=== PATIENT | male | born 1975 | race Caucasian/White ===

== ENCOUNTER 2017-03-01 15:23 | Emergency (ER) | payer BC ==
[2017-03-01] MEDS ORDERED: Sodium Chloride 0.9% 1,000 ML IV ONE (15:35)
--- NOTE | 2017-03-01 16:01 | EDM.PDOC ---
ED HPI GENERAL MEDICAL PROBLEM - General Chief Complaint: Gastrointestinal Problem Stated Complaint: HEADACHES,DIZZY AND COUGHING Time Seen by Provider: 03/01/17 15:30 Source of Information: Reports: Patient History Limitations: Reports: No Limitations - History of Present Illness INITIAL COMMENTS - FREE TEXT/NARRATIVE: History of present illness: [41-year-old male comes in complaining of nausea vomiting diarrhea. 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 Past medical history: As per history of present illness and as reviewed below otherwise noncontributory. Surgical history: As per history of present illness and as reviewed below otherwise noncontributory. Social history: No reported history of drug or alcohol abuse. Family history: As per history of present illness and as reviewed below otherwise noncontributory. Physical exam: HEENT: Atraumatic, normocephalic, pupils reactive, negative for conjunctival pallor or scleral icterus, mucous membranes moist, throat clear, neck supple, nontender, trachea midline. Lungs: Clear to auscultation, breath sounds equal bilaterally, chest nontender. Heart: S1S2, regular, negative for clicks, rubs, or JVD. Abdomen: Soft, nondistended, nontender. Negative for masses or hepatosplenomegaly. Negative for costovertebral tenderness. Pelvis: Stable nontender. Genitourinary: Deferred. Rectal: Deferred. Extremities: Atraumatic, negative for cords or calf pain. Neurovascular unremarkable. Neuro: Awake, alert, oriented. Cranial nerves II through XII unremarkable. Cerebellum unremarkable. Motor and sensory unremarkable throughout. Exam nonfocal. Diagnostics: [CBC, CMP, influenza AB] Therapeutics: [IV fluid] Impression: [] Plan: [] Definitive disposition and diagnosis as appropriate pending reevaluation and review of above. Generalized Pain Score (Numeric/FACES): 5 - Related Data Allergies Allergy/AdvReac Type Severity Reaction Status Date / Time No Known Allergies Allergy Verified 03/01/17 15:29 Home Meds: Home Meds Omeprazole 20 mg PO DAILY 03/01/17 [History] Past Medical History Gastrointestinal History: Reports: GERD - Past Surgical History GI Surgical History: Reports: Appendectomy, Bariatric Procedure, Cholecystectomy , Hernia Repair/Other, Other (See Below) Other GI Surgeries/Procedures: Danay and Y procedure Musculoskeletal Surgical History: Reports: Other (See Below) Other Musculoskeletal Surgeries/Procedures:: 2 back surgeries Social & Family History - Family History Family Medical History: Noncontributory - Tobacco Use Smoking Status *Q: Current Every Day Smoker Years of Tobacco use: 15 Packs/Tins Daily: 0.5 Second Hand Smoke Exposure: Yes - Caffeine Use Caffeine Use: Reports: Coffee, Soda Caffeine Use Comment: 2 cups avg per day - Recreational Drug Use Recreational Drug Use: No ED ROS GENERAL - Review of Systems Review Of Systems: See Below (See history of present illness) ED EXAM, GENERAL - Physical Exam Exam: See Below (See history of present illness) Course - Vital Signs Last Recorded V/S: Last Vital Signs Temp 37.4 C 03/01/17 17:46 Pulse 63 03/01/17 17:46 Resp 16 03/01/17 17:46 BP 146/104 H 03/01/17 17:46 Pulse Ox 98 03/01/17 17:46 - Orders/Labs/Meds Labs: Laboratory Tests 03/01/17 03/01/17 Range/Units 15:48 15:48 WBC 3.57 L (4.0-11.0) K/uL RBC 4.40 L (4.50-5.90) M/uL Hgb 10.4 L (13.0-17.0) g/dL Hct 34.9 L (38.0-50.0) % MCV 79.3 L (80.0-98.0) fL MCH 23.6 L (27.0-32.0) pg MCHC 29.8 L (31.0-37.0) g/dL RDW Std Deviation 42.6 (28.0-62.0) fl RDW Coeff of Freddy 15 (11.0-15.0) % Plt Count 156 (150-400) K/uL MPV 9.10 (7.40-12.00) fL Neut % (Auto) 60.2 (48.0-80.0) % Lymph % (Auto) 23.8 (16.0-40.0) % [place] % (Auto) 9.8 (0.0-15.0) % Eos % (Auto) 5.6 (0.0-7.0) % Baso % (Auto) 0.6 (0.0-1.5) % Neut # (Auto) 2.2 (1.4-5.7) K/uL Lymph # (Auto) 0.9 (0.6-2.4) K/uL [place] # (Auto) 0.4 (0.0-0.8) K/uL Eos # (Auto) 0.2 (0.0-0.7) K/uL Baso # (Auto) 0.0 (0.0-0.1) K/uL Nucleated RBC % 0.0 /100WBC Nucleated RBCs # 0 K/uL Sodium 138 (136-146) mmol/L Potassium 3.7 (3.5-5.1) mmol/L Chloride 104 (98-110) mmol/L Carbon Dioxide 26 (21-31) mmol/L BUN 18 (6.0-23.0) mg/dL Creatinine 0.8 (0.6-1.5) mg/dL Est Cr Clr Drug Dosing 157.79 mL/min Estimated GFR (MDRD) > 60.0 ml/min Glucose 112 H (60-110) mg/dL Calcium 8.6 L (8.8-10.8) mg/dL Total Bilirubin 0.9 (0.1-1.5) mg/dL AST 32 (5-40) IU/L ALT 19 (8-54) IU/L Alkaline Phosphatase 56 (40-150) Total Protein 6.7 (6.0-8.0) g/dL Albumin 3.8 (3.5-5.0) g/dL Globulin 2.9 (2.0-3.5) g/dL Albumin/Globulin Ratio 1.3 (1.3-2.8) Meds: Medications Discontinued Medications Generic Name Dose Route Start Last Admin Trade Name Freq PRN Reason Stop Dose Admin Acetaminophen 1,000 mg 03/01/17 17:02 03/01/17 17:10 Tylenol Extra Strength PO 03/01/17 17:03 1,000 mg ONETIME ONE Administration Sodium Chloride 1,000 mls @ 999 mls/hr 03/01/17 15:35 03/01/17 15:49 Normal Saline IV 03/01/17 16:35 999 mls/hr STAT ONE Administration Departure - Departure Time of Disposition: 17:49 Disposition: Home, Self-Care 01 Condition: Good Clinical Impression: Viral syndrome - Discharge Information Instructions: Dehydration, Adult, [id number], Viral Gastroenteritis, Adult, [id number]-[id number], Diarrhea, Adult, [id number], Nausea and Vomiting, Adult, Easy-to -Read Referrals: PCP,None [Primary Care Provider] - Forms: ED Department Discharge Additional Instructions: The following information is given to patients seen in the emergency department who are being discharged to home. This information is to outline your options for follow-up care. We provide all patients seen in our emergency department with a follow-up referral. The need for follow-up, as well as the timing and circumstances, are variable depending upon the specifics of your emergency department visit. If you don't have a primary care physician on staff, we will provide you with a referral. We always advise you to contact your personal physician following an emergency department visit to inform them of the circumstance of the visit and for follow-up with them and/or the need for any referrals to a consulting specialist. The emergency department will also refer you to a specialist when appropriate. This referral assures that you have the opportunity for follow-up care with a specialist. All of these measure are taken in an effort to provide you with optimal care, which includes your follow-up. Under all circumstances we always encourage you to contact your private physician who remains a resource for coordinating your care. When calling for follow-up care, please make the office aware that this follow-up is from your recent emergency room visit. If for any reason you are refused follow-up, please contact the [facility] Emergency Department at and asked to speak to the emergency department charge nurse. Your symptoms that you have described are consistent with a viral syndrome in light of a negative flu results on your swab Please take a clear liquid diet for the next 24 hours advancing to the BRAT diet which is bananas rice applesauce toast as discussed You're being provided Zofran for nausea as needed Follow-up with primary care in 2-3 days Return to ED as needed as discussed
[2017-03-01 16:15] LABS: CHLORIDE,CL 104 mmol/L (98-110); SODIUM,NA 138 mmol/L (136-146)
[2017-03-01] MEDS ORDERED: Acetaminophen 500 MG Tab PO ONE (17:02)
== END 2017-03-01 18:04 | disposition home or self-care (01) ==
LOC: MW.ED 15:23
DX: B34.9 Viral infection, unspecified (principal); K21.9 Gastro-esophageal reflux disease without esophagitis; F17.210 Nicotine dependence, cigarettes, uncomplicated; Z79.899 Other long term (current) drug therapy
CPT/HCPCS: 36415; 80053; 85025; 87804; 96360; 99284; A9270; J7040; 99283

== ENCOUNTER 2017-03-26 10:39 | Emergency (ER) | payer BC ==
[2017-03-26] MEDS ORDERED: Ketorolac 60 MG/2 ML SDV IM ONE (10:46)
--- NOTE | 2017-03-26 10:55 | EDM.PDOC ---
ED HPI GENERAL MEDICAL PROBLEM - General Chief Complaint: Back Pain or Injury Stated Complaint: LOWER BACK PAIN Time Seen by Provider: 03/26/17 10:44 Source of Information: Reports: Patient History Limitations: Reports: No Limitations - History of Present Illness INITIAL COMMENTS - FREE TEXT/NARRATIVE: HISTORY AND PHYSICAL: History of present illness: Patient is a 41-year-old male who presents to the emergency room today with complaints of low back pain. Yesterday he was carrying a TV up a flight of stairs when he placed the TV on the landing he states he lost his balance and fell approximately 6 steps landing on his back. He denies directly hitting his head or any loss of consciousness. Post fall he states he went to his apartment and did have some a "shot a whiskey" to alleviate the pain. He attempted to go to work today and pain was worse. States he has discomfort when bending or twisting at the waist. He denies any urinary or bowel incontinence. Denies any numbness or tingling to his upper or lower extremities. Able to ambulate without difficulty. Is not on any [id number] medications or anticoagulants. She denies any headache, change in vision, neck pain, chest pain, shortness of breath. Review of systems: As per history of present illness and below otherwise all systems reviewed and negative. Past medical history: As per history of present illness and as reviewed below otherwise noncontributory. Surgical history: As per history of present illness and as reviewed below otherwise noncontributory. Social history: No reported history of drug or alcohol abuse. Family history: As per history of present illness and as reviewed below otherwise noncontributory. Physical exam: Gen.: Well-developed and well-nourished 41-year-old male. Alert and oriented. Answers questions appropriately. Nontoxic appearing and in no acute distress. HEENT: Atraumatic, normocephalic, pupils equal and reactive bilaterally, negative for conjunctival pallor or scleral icterus, mucous membranes moist, throat clear, neck supple, nontender, trachea midline. No meningeal sign. No drooling or trismus. Lungs: Clear to auscultation, breath sounds equal bilaterally, chest nontender. Heart: S1S2, regular rate and rhythm Abdomen: Soft, nondistended, nontender. Negative for masses or hepatosplenomegaly. Negative for costovertebral tenderness. Pelvis: Stable nontender. Genitourinary: Deferred. Rectal: Deferred. C-Spine/Back: No pinpoint vertebral tenderness upon palpation. No cervical, thoracic, lumbar or sacral deformity, crepitus or step-offs. Patient is able to ambulate on his toes and on his heels without difficulty. Does have some discomfort when bending at the waist forward and twisting from side to side. Full range of motion without difficulty but does cause some discomfort. Strong pedal pulses bilaterally. Strong radial pulses bilaterally. Denies any numbness or tingling to the distal extremities. Is intact, warm, dry. Extremities: Denies any extremity pain or tenderness with palpation, has full range of motion, negative for cords or calf pain. Has some muscular discomfort/ tenderness with palpation to the lumbar area, adjacent to the spine bilaterally. This does not radiate down either glute or down the leg. Neurovascular unremarkable. Neuro: Awake, alert, oriented. Cranial nerves II through XII unremarkable. Cerebellum unremarkable. Motor and sensory unremarkable throughout. Exam nonfocal. Lumbar x-ray shows mild degenerative changes but otherwise benign. Acute findings. Patient's pain appears to be muscular, will prescribe Flexeril, #21 tablets, no refill. Diclofenac has also been prescribed. Education and post medications have been given to the patient. Not improved we discussed the next steps of possibly needing physical therapy or further imaging, which would be done through his primary care. He states he'll follow-up if he does not improve in the next couple days. He voices understanding and is agreeable to plan of care. He denies any further questions at this time. Diagnostics: Lumbar x-ray Therapeutics: Toradol Impression: Low back pain Plan: 1. Diclofenac and Flexeril have been prescribed for you. Diclofenac as an anti- inflammatory so please do not take with any additional NSAIDs, such as ibuprofen or Aleve, as this may cause stomach upset. Take this medication with food. External may cause some drowsiness do not take it while driving or needing to be functioning at work. If needed he may take Tylenol for breakthrough pain. Gentle heat and stretching. 2. Please follow-up with your primary care provider in the next couple days for reevaluation. Return to the ED as needed and as discussed. Definitive disposition and diagnosis as appropriate pending reevaluation and review of above. Onset Date: 03/25/17 Onset Time: 17:00 Duration: Day(s): Location: Reports: Back Improves with: Reports: Rest Worsens with: Reports: Movement Associated Symptoms: Reports: No Other Symptoms Middle Back Pain Score (Numeric/FACES): 6 - Related Data Allergies Allergy/AdvReac Type Severity Reaction Status Date / Time No Known Allergies Allergy Verified 03/01/17 15:29 Home Meds: Home Meds Omeprazole 20 mg PO DAILY 03/01/17 [History] Ondansetron [Zofran] 4 mg PO Q4H #30 tab 03/01/17 [Rx] Past Medical History Gastrointestinal History: Reports: GERD - Past Surgical History GI Surgical History: Reports: Appendectomy, Bariatric Procedure, Cholecystectomy , Hernia Repair/Other, Other (See Below) Other GI Surgeries/Procedures: Danay and Y procedure Musculoskeletal Surgical History: Reports: Other (See Below) Other Musculoskeletal Surgeries/Procedures:: 2 back surgeries Social & Family History - Family History Family Medical History: Noncontributory - Tobacco Use Smoking Status *Q: Current Every Day Smoker Years of Tobacco use: 15 Packs/Tins Daily: 0.5 Second Hand Smoke Exposure: Yes - Caffeine Use Caffeine Use: Reports: Coffee, Soda Caffeine Use Comment: 2 cups avg per day - Recreational Drug Use Recreational Drug Use: No ED ROS GENERAL - Review of Systems Review Of Systems: ROS reveals no pertinent complaints other than HPI. ED EXAM,LOWER BACK PAIN/INJURY - Physical Exam Exam: See Below (See dictation) Course - Vital Signs Last Recorded V/S: Last Vital Signs Temp 96.7 F 03/26/17 10:46 Pulse 86 03/26/17 10:46 Resp 18 03/26/17 10:46 BP 175/84 H 03/26/17 10:46 Pulse Ox 97 03/26/17 10:46 - Orders/Labs/Meds Meds: Medications Discontinued Medications Generic Name Dose Route Start Last Admin Trade Name Frandy PRN Reason Stop Dose Admin Ketorolac Tromethamine 60 mg 03/26/17 10:46 03/26/17 10:52 Toradol IM 03/26/17 10:47 60 mg ONETIME ONE Administration Departure - Departure Time of Disposition: 10:56 Disposition: Home, Self-Care 01 Clinical Impression: Back pain Qualifiers: Back pain location: low back pain Chronicity: acute Back pain laterality: midline Sciatica presence: without sciatica Qualified Code(s): M54.5 - Low back pain - Discharge Information Instructions: Back Pain, Adult, [id number] Referrals: PCP,None [Primary Care Provider] - Forms: ED Department Discharge Additional Instructions: My general discharge The following information is given to patients seen in the emergency department who are being discharged to home. This information is to outline your options for follow-up care. We provide all patients seen in our emergency department with a follow-up referral. The need for follow-up, as well as the timing and circumstances, are variable depending upon the specifics of your emergency department visit. If you don't have a primary care physician on staff, we will provide you with a referral. We always advise you to contact your personal physician following an emergency department visit to inform them of the circumstance of the visit and for follow-up with them and/or the need for any referrals to a consulting specialist. The emergency department will also refer you to a specialist when appropriate. This referral assures that you have the opportunity for follow-up care with a specialist. All of these measure are taken in an effort to provide you with optimal care, which includes your follow-up. Under all circumstances we always encourage you to contact your private physician who remains a resource for coordinating your care. When calling for follow-up care, please make the office aware that this follow-up is from your recent emergency room visit. If for any reason you are refused follow-up, please contact the [facility] Emergency Department at and asked to speak to the emergency department charge nurse. [facility] [address] [place] [id number] 1. Diclofenac and Flexeril have been prescribed for you. Diclofenac as an anti- inflammatory so please do not take with any additional NSAIDs, such as ibuprofen or Aleve, as this may cause stomach upset. Take this medication with food. External may cause some drowsiness do not take it while driving or needing to be functioning at work. If needed he may take Tylenol for breakthrough pain. Gentle heat and stretching. 2. Please follow-up with your primary care provider in the next couple days for reevaluation. Return to the ED as needed and as discussed.
--- NOTE | 2017-03-26 11:44 | CR ---
EXAMINATION: Lumbar spine HISTORY: Pain COMPARISON: None TECHNIQUE: AP and lateral views FINDINGS: Mild levocurvature of the lumbar spine. The vertebral body heights appear grossly maintaine d. Mild Marginal osteophytes are noted. No fracture or acute osseous abnormality. Bone mineralization appears normal. SI joints are symmetric. Moderate amount of gas noted within the colon. IMPRESSION: 1. Mild degenerative changes without acute findings within the lumbar spine.
== END 2017-03-26 11:50 | disposition home or self-care (01) ==
LOC: MW.ED 10:39
DX: M54.5 Low back pain (principal); F17.210 Nicotine dependence, cigarettes, uncomplicated; Z79.899 Other long term (current) drug therapy; W10.9XXA Fall (on) (from) unspecified stairs and steps, initial encounter
CPT/HCPCS: 72100; 96372; 99283; J1885; 99284

== ENCOUNTER 2022-05-30 16:03 | Emergency (ER) | payer BC ==
[2022-05-30] MEDS ORDERED: Cephalexin 500 MG Cap PO ONE (16:44)
[2022-05-30 17:20] LABS: CARBON DIOXIDE,CO2 29.4 mmol/L (21.0-32.0); POTASSIUM,K 4.5 mmol/L (3.5-5.1)
== END 2022-05-30 17:46 | disposition home or self-care (01) ==
LOC: MW.ED 16:03
DX: L03.116 Cellulitis of left lower limb (principal)
CPT/HCPCS: 36415; 73620; 80048; 85025; 99283; A9270

== ENCOUNTER 2022-08-20 21:45 | Emergency (ER) | payer BC ==
[2022-08-20] MEDS ORDERED: Ketorolac 30 MG/ML SDV IM ONE (22:41)
== END 2022-08-21 01:10 | disposition home or self-care (01) ==
LOC: MW.ED 21:45
DX: L97.521 Non-pressure chronic ulcer of other part of left foot limited to breakdown of skin (principal); F17.210 Nicotine dependence, cigarettes, uncomplicated
CPT/HCPCS: 73620; 96372; 99283; J1885

== ENCOUNTER 2022-11-06 10:30 | Emergency (ER) | payer BC, OTHER ==
[2022-11-06] MEDS ORDERED: Diphtheria,Pertussis(Acell),Tetanus Vaccine 0.5 ML Syringe IM ONE (10:35)
[2022-11-06] MEDS ORDERED: Lidocaine 1% PF 2 ML SDV INJECT ONE (10:35)
== END 2022-11-06 12:00 | disposition home or self-care (01) ==
LOC: MW.ED 10:30
DX: S61.214A Laceration without foreign body of right ring finger without damage to nail, initial encounter (principal); I10 Essential (primary) hypertension; F17.210 Nicotine dependence, cigarettes, uncomplicated; Z23 Encounter for immunization; Z79.899 Other long term (current) drug therapy; W26.8XXA Contact with other sharp object(s), not elsewhere classified, initial encounter
CPT/HCPCS: 12001; 90471; 90715; 99282-25; 99283; J3490

== ENCOUNTER 2022-12-12 12:31 | Emergency (ER) | payer BC | END 2022-12-12 15:19 | disposition home or self-care (01) | LOC: MW.ED 12:31 | DX: H53.8 Other visual disturbances (principal); I10 Essential (primary) hypertension; K21.9 Gastro-esophageal reflux disease without esophagitis; Z79.899 Other long term (current) drug therapy | CPT/HCPCS: 99283 ==

== ENCOUNTER 2022-12-13 14:22 | Emergency (ER) | payer BC ==
[2022-12-13] MEDS ORDERED: Sodium Chloride 0.9% 10 ML Syringe FLUSH PRN (14:46)
[2022-12-13] MEDS ORDERED: Sodium Chloride 0.9% 2.5 ML Syringe FLUSH PRN (14:46)
== END 2022-12-13 14:54 | disposition left against medical advice (07) ==
LOC: MW.ED 14:22
DX: H54.61 Unqualified visual loss, right eye, normal vision left eye (principal); R46.89 Other symptoms and signs involving appearance and behavior; I10 Essential (primary) hypertension; K21.9 Gastro-esophageal reflux disease without esophagitis; Z79.899 Other long term (current) drug therapy
CPT/HCPCS: 99282; 99283

== ENCOUNTER 2023-02-18 16:45 | Emergency (ER) | payer OTHER, BC ==
[2023-02-18] MEDS ORDERED: Bacitracin/Neomycin/Polymyxin B Oint 28.4 GM Tube TOP STA (18:39)
== END 2023-02-18 18:44 | disposition home or self-care (01) ==
LOC: MW.ED 16:45
DX: T20.22XA Burn of second degree of lip(s), initial encounter (principal); T20.24XA Burn of second degree of nose (septum), initial encounter; T20.26XA Burn of second degree of forehead and cheek, initial encounter; K21.9 Gastro-esophageal reflux disease without esophagitis; Z79.899 Other long term (current) drug therapy
CPT/HCPCS: 99283; A9270